=== PATIENT | female | born 2000 | race Caucasian/White ===

== ENCOUNTER 2020-05-03 14:48 | Inpatient (IN) ==
[2020-05-03 15:23] LABS: Appearance Urine Clear (Clear); Bilirubin Urine Negative (Negative); Blood Urine Negative (Negative); Color Urine Yellow; Glucose Urine UA Negative (Negative); Ketones Urine Negative (Negative); Leukocyte Esterase Urine Negative (Negative); Nitrite Urine Negative (Negative); Protein Urine Negative (Negative); Specific Gravity Urine 1.015 (1.000-1.030); Urobilinogen Urine Negative (Negative)
--- NOTE | 2020-05-03 15:23 | Emergency Department Note ---
History of Present Illness General Chief Complaint: Mental Health Evaluation Stated Complaint: SUICIDE THOUGHTS Time Seen by Provider: 05/03/20 15:01 Source: patient Mode of arrival: ambulatory Limitations: no limitations History of Present Illness Provider complaint: suicidal ideation This is a 20-year-old female who presents to the ED with a chief complaint of intrusive thoughts for the past month. She states that she was living with her dad a couple of years ago when he committed suicide by shooting himself. The patient states that she has a therapist at [place] and also a psychiatrist there as well. The therapist thought she should come in for evaluation as she has been having some intrusive thoughts about harming herself such as jumping off of a balcony. The patient denies any recent illness. She denies any trauma. She has not taken any actions to harm herself at this point. She does feel that she is suicidal at times and concerned about herself being at risk since her dad committed suicide as well. Home Medications Medication Instructions Recorded Confirmed Type fluoxetine 80 mg PO QAM 05/03/20 05/03/20 History hydralazine 10 mg PO TID PRN 05/03/20 05/03/20 History prazosin 5 mg PO HS 05/03/20 05/03/20 History Allergies Allergy/AdvReac Type Severity Reaction Status Date / Time Penicillins AdvReac Vomiting Verified 05/03/20 17:57 Past Med/Surg History Social History Smoking Status: Never smoker Feels Safe at Home: Yes Review of Systems A total of 10 systems reviewed and were otherwise negative Physical Exam Vital Signs Vital Signs - 24 hr 05/03/20 14:55 05/03/20 16:49 Temperature 36.8 C Temperature Source Temporal Artery Scan Pulse Rate 110 H Respiratory Rate 18 Respiratory Effort / Characteristics Non-Labored Spontaneous Respiratory Depth Normal Respiratory Pattern Regular Blood Pressure 128/76 Blood Pressure [Right Arm] 123/79 Blood Pressure Mean 93 Blood Pressure Mean [Right Arm] 93 Blood Pressure Position Sitting Pulse Oximetry 97 Oxygen Delivery Method Room Air Sepsis Recent Fever Within 48 Hours No Sepsis New/Unexplained Change in Mental Status N/A Sepsis Action Taken by Nursing No Action Required CONSTITUTIONAL/VITAL SIGNS: Reviewed / noted above. GENERAL: Non-toxic in appearance. INTEGUMENTARY: Warm, dry, and Soldier. HEAD: Normocephalic. EYES: without scleral icterus or trauma. ENT/OROPHARYNX: clear and moist. LYMPHADENOPATHY/NECK: Is supple without lymphadenopathy or meningismus. RESPIRATORY: Lungs clear and equal. CARDIOVASCULAR: Regular rate and rhythm. GI/ABDOMEN: Soft and nontender. No organomegaly or pulsatile mass. No rebound or guarding. Normal bowel sounds. EXTREMITIES: Warm and well perfused. BACK: No CVA tenderness. NEUROLOGICAL: Intact without focal deficits. PSYCHIATRIC: Depressed affect, tearful at times when referring to her dad.. MUSCULOSKELETAL: Normally developed with good muscle tone. TRIAGE NURSING DOCUMENTATION REVIEWED. Medical Decision Making Differential Diagnosis Differential includes toxic ingestions, self-mutilation, suicidal ideation, suicide attempt, depression. Medical Records Attestation: I reviewed the patient's medical records. Home Medications Current Medication List: was personally reviewed by me Laboratory Data Attestation: I reviewed the patient's lab results. Result diagrams: 05/03/20 15:42 05/03/20 15:42 Lab Results 05/03/20 05/03/20 05/03/20 Range/Units 15:07 15:07 15:07 WBC (4.8-10.8) K/uL RBC (4.2-5.4) M/uL Hgb (12.0-16.0) g/dL Hct (37-47) % MCV (80-100) fL MCH (25-34) pg MCHC (32-36) g/dL RDW Std Deviation (36.4-46.3) fL RDW Coeff of Keanu (11.5-14.5) % Plt Count (130-400) K/uL MPV (7.4-10.4) fL Immature Gran % (Auto) % Neut % (Auto) % Lymph % (Auto) % [place] % (Auto) % Eos % (Auto) % Baso % (Auto) % Neut # (Auto) (1.4-6.5) K/uL Lymph # (Auto) (1.2-3.4) K/uL [place] # (Auto) (0.11-0.59) K/uL Eos # (Auto) (0-0.5) K/uL Baso # (Auto) (0-0.2) K/uL Immature Gran # (Auto) (0.00-0.02) K/uL Sodium (136-145) mmol/L Potassium (3.5-5.1) mmol/L Chloride (98-107) mmol/L Carbon Dioxide (21-32) mmol/L Anion Gap (3-11) BUN (7-18) mg/dl Creatinine (0.6-1.2) mg/dl Est Cr Clr Drug Dosing ml/min Est GFR ( Amer) Est GFR (Non-Af Amer) BUN/Creatinine Ratio (10-20) Glucose (70-99) mg/dl Calcium (8.5-10.1) mg/dl Total Bilirubin (0.2-1) mg/dl AST (15-37) U/L ALT (12-78) U/L Alkaline Phosphatase (45-117) U/L Total Protein (6.4-8.2) gm/dl Albumin (3.4-5.0) gm/dl Globulin (2.5-4.0) gm/dl Albumin/Globulin Ratio (0.9-2) TSH (0.300-4.500) uIu/ml Urine Color Yellow Urine Appearance Clear (Clear) Urine pH 8.0 H (4.5-7.5) Ur Specific [place] 1.015 (1.000-1.030) Urine Protein Negative (Negative) Urine Glucose (UA) Negative (Negative) Urine Ketones Negative (Negative) Urine Blood Negative (Negative) Urine Nitrite Negative (Negative) Urine Bilirubin Negative (Negative) Urine Urobilinogen Negative (Negative) Ur Leukocyte Esterase Negative (Negative) POC Ur Test NEG (NEG) Salicylates (2.8-20) mg/dl Urine Opiates Screen Neg (Neg) Ur Methadone, Qual Neg (Neg) Acetaminophen (10-30) ug/ml Urine Barbiturates Neg (Neg) Ur Phencyclidine (PCP) Neg (Neg) U Amphetamin/Meth Scrn Neg (Neg) MDMA (Ecstasy) Screen Neg (Neg) U Benzodiazepines Scrn Neg (Neg) Ur Cocaine Metabolite Neg (Neg) U Marijuana (THC) Screen Neg (Neg) Ethyl Alcohol mg/dL (0-3) mg/dl COVID-19 Eval Order SARS-CoV-2, RNA, NAAT (NEGATIVE) 05/03/20 05/03/20 05/03/20 Range/Units 15:30 15:30 15:42 WBC 7.16 (4.8-10.8) K/uL RBC 4.44 (4.2-5.4) M/uL Hgb 13.7 (12.0-16.0) g/dL Hct 39.7 (37-47) % MCV 89.4 (80-100) fL MCH 30.9 (25-34) pg MCHC 34.5 (32-36) g/dL RDW Std Deviation 40.3 (36.4-46.3) fL RDW Coeff of Keanu 12.3 (11.5-14.5) % Plt Count 283 (130-400) K/uL MPV 8.7 (7.4-10.4) fL Immature Gran % (Auto) 0.0 % Neut % (Auto) 62.0 % Lymph % (Auto) 26.3 % [place] % (Auto) 10.3 % Eos % (Auto) 1.3 % Baso % (Auto) 0.1 % Neut # (Auto) 4.44 (1.4-6.5) K/uL Lymph # (Auto) 1.88 (1.2-3.4) K/uL [place] # (Auto) 0.74 H (0.11-0.59) K/uL Eos # (Auto) 0.09 (0-0.5) K/uL Baso # (Auto) 0.01 (0-0.2) K/uL Immature Gran # (Auto) 0.00 (0.00-0.02) K/uL Sodium (136-145) mmol/L Potassium (3.5-5.1) mmol/L Chloride (98-107) mmol/L Carbon Dioxide (21-32) mmol/L Anion Gap (3-11) BUN (7-18) mg/dl Creatinine (0.6-1.2) mg/dl Est Cr Clr Drug Dosing ml/min Est GFR ( Amer) Est GFR (Non-Af Amer) BUN/Creatinine Ratio (10-20) Glucose (70-99) mg/dl Calcium (8.5-10.1) mg/dl Total Bilirubin (0.2-1) mg/dl AST (15-37) U/L ALT (12-78) U/L Alkaline Phosphatase (45-117) U/L Total Protein (6.4-8.2) gm/dl Albumin (3.4-5.0) gm/dl Globulin (2.5-4.0) gm/dl Albumin/Globulin Ratio (0.9-2) TSH (0.300-4.500) uIu/ml Urine Color Urine Appearance (Clear) Urine pH (4.5-7.5) Ur Specific [place] (1.000-1.030) Urine Protein (Negative) Urine Glucose (UA) (Negative) Urine Ketones (Negative) Urine Blood (Negative) Urine Nitrite (Negative) Urine Bilirubin (Negative) Urine Urobilinogen (Negative) Ur Leukocyte Esterase (Negative) POC Ur Test (NEG) Salicylates (2.8-20) mg/dl Urine Opiates Screen (Neg) Ur Methadone, Qual (Neg) Acetaminophen (10-30) ug/ml Urine Barbiturates (Neg) Ur Phencyclidine (PCP) (Neg) U Amphetamin/Meth Scrn (Neg) MDMA (Ecstasy) Screen (Neg) U Benzodiazepines Scrn (Neg) Ur Cocaine Metabolite (Neg) U Marijuana (THC) Screen (Neg) Ethyl Alcohol mg/dL (0-3) mg/dl COVID-19 Eval [facility] SARS-[facility]-2, RNA, NAAT NEGATIVE (NEGATIVE) 05/03/20 05/03/20 05/03/20 Range/Units 15:42 15:42 15:42 WBC (4.8-10.8) K/uL RBC (4.2-5.4) M/uL Hgb (12.0-16.0) g/dL Hct (37-47) % MCV (80-100) fL MCH (25-34) pg MCHC (32-36) g/dL RDW Std Deviation (36.4-46.3) fL RDW Coeff of Keanu (11.5-14.5) % Plt Count (130-400) K/uL MPV (7.4-10.4) fL Immature Gran % (Auto) % Neut % (Auto) % Lymph % (Auto) % [place] % (Auto) % Eos % (Auto) % Baso % (Auto) % Neut # (Auto) (1.4-6.5) K/uL Lymph # (Auto) (1.2-3.4) K/uL [place] # (Auto) (0.11-0.59) K/uL Eos # (Auto) (0-0.5) K/uL Baso # (Auto) (0-0.2) K/uL Immature Gran # (Auto) (0.00-0.02) K/uL Sodium 138 (136-145) mmol/L Potassium 3.9 (3.5-5.1) mmol/L Chloride 107 (98-107) mmol/L Carbon Dioxide 27 (21-32) mmol/L Anion Gap 4.0 (3-11) BUN 15 (7-18) mg/dl Creatinine 0.82 (0.6-1.2) mg/dl Est Cr Clr Drug Dosing 89.0 ml/min Est GFR ( Amer) 117.7 Est GFR (Non-Af Amer) 101.6 BUN/Creatinine Ratio 18.1 (10-20) Glucose 89 (70-99) mg/dl Calcium 9.6 (8.5-10.1) mg/dl Total Bilirubin 0.2 (0.2-1) mg/dl AST 11 L (15-37) U/L ALT 20 (12-78) U/L Alkaline Phosphatase 38 L (45-117) U/L Total Protein 6.9 (6.4-8.2) gm/dl Albumin 3.7 (3.4-5.0) gm/dl Globulin 3.2 (2.5-4.0) gm/dl Albumin/Globulin Ratio 1.2 (0.9-2) TSH 4.140 (0.300-4.500) uIu/ml Urine Color Urine Appearance (Clear) Urine pH (4.5-7.5) Ur Specific [place] (1.000-1.030) Urine Protein (Negative) Urine Glucose (UA) (Negative) Urine Ketones (Negative) Urine Blood (Negative) Urine Nitrite (Negative) Urine Bilirubin (Negative) Urine Urobilinogen (Negative) Ur Leukocyte Esterase (Negative) POC Ur Test (NEG) Salicylates < 1.7 L (2.8-20) mg/dl Urine Opiates Screen (Neg) Ur Methadone, Qual (Neg) Acetaminophen < 2 L (10-30) ug/ml Urine Barbiturates (Neg) Ur Phencyclidine (PCP) (Neg) U Amphetamin/Meth Scrn (Neg) MDMA (Ecstasy) Screen (Neg) U Benzodiazepines Scrn (Neg) Ur Cocaine Metabolite (Neg) U Marijuana (THC) Screen (Neg) Ethyl Alcohol mg/dL < 3.0 (0-3) mg/dl COVID-19 Eval Order SARS-CoV-2, RNA, NAAT (NEGATIVE) MDM Narrative Patient presents for evaluation at the advice of her therapist from [place]. Suicidal thoughts and intrusive thoughts, according to the patient. Has not taken any furtherance of action towards these thoughts. Exam was unremarkable. Vital signs are stable. The patient is medically cleared for psychiatric evaluation and admission. test was negative. Tox screen was negative. Covid is negative. CBC and chemistry panel was unremarkable. The patient was accepted here at [facility] [address] for mental health evaluation. Impression & Plan Depression with suicidal ideation Discharge Plan Visit Data Chief Complaint: Mental Health Evaluation Stated Complaint: SUICIDE THOUGHTS ED Provider: Rashaun Long Discharge Problem: Depression with suicidal ideation Patient Disposition: Transfer Behavioral Health Fac Forms Stand Alone Forms: My [facility], Suicide Prevention Resources Prescriptions Prescriptions: No Action fluoxetine 40 mg Capsule 80 mg PO QAM RF: 0 hydralazine 10 mg Tablet 10 mg PO TID PRN (Reason: Anxiety) RF: 0 prazosin 5 mg Capsule 5 mg PO HS RF: 0 Referrals Referrals: LIZZ LAGUNAS [Other]
[2020-05-03 15:50] LABS: Amphetamines+Metham, Urine Neg (Neg); Barbiturates, Urine Neg (Neg); Benzodiazepine, Urine Neg (Neg); Cocaine, Urine Neg (Neg); MDMA (Ecstacy), Urine Neg (Neg); Methadone, Urine Neg (Neg); Opiate, Urine Neg (Neg); Phencyclidine, Urine Neg (Neg)
[2020-05-03 15:59] LABS: Basophils # (auto) 0.01 K/uL (0-0.2); Basophils % (auto) 0.1 %; Eosinophils # (auto) 0.09 K/uL (0-0.5); Eosinophils % (auto) 1.3 %; Hematocrit (blood only) 39.7 % (37-47); Hemoglobin 13.7 g/dL (12.0-16.0); Lymphocytes # (auto) 1.88 K/uL (1.2-3.4); Lymphocytes % (auto) 26.3 %; Mean Corpuscular Hemoglobin 30.9 pg (25-34); Mean Corpuscular Hgb Conc 34.5 g/dL (32-36); Mean Corpuscular Volume 89.4 fL (80-100); Mean Platelet Volume 8.7 fL (7.4-10.4); Monocytes # (auto) 0.74 K/uL (0.11-0.59); Monocytes % (auto) 10.3 %; Neutrophils # (auto) 4.44 K/uL (1.4-6.5); Platelet Count 283 K/uL (130-400); RDW Coefficient of Variation 12.3 % (11.5-14.5); RDW Standard Deviation 40.3 fL (36.4-46.3); Red Blood Count 4.44 M/uL (4.2-5.4); White Blood Count 7.16 K/uL (4.8-10.8)
[2020-05-03 16:14] LABS: Albumin Level 3.7 gm/dl (3.4-5.0); BUN Creatinine Ratio 18.1 (10-20); Calcium 9.6 mg/dl (8.5-10.1); Est GFR (African American) 117.7; Est GFR (Non-African American) 101.6; Potassium 3.9 mmol/L (3.5-5.1)
[2020-05-03 16:25] LABS: Albumin Globulin Ratio 1.2 (0.9-2); Bilirubin,Total 0.2 mg/dl (0.2-1); Globulin 3.2 gm/dl (2.5-4.0); Thyroid Stimulating Hormone 4.14 uIu/ml (0.300-4.500); Total Protein 6.9 gm/dl (6.4-8.2)
[2020-05-03 16:45] LABS: Acetaminophen < 2 ug/ml (10-30); Salicylate < 1.7 mg/dl (2.8-20)
[2020-05-03] MEDS ORDERED: ALUMINUM/MAGNESIUM SUSP 30 ML UDC PO PRN (20:12)
[2020-05-03] MEDS ORDERED: hydrOXYzine HCl 25 MG TAB PO PRN ×2 (20:12)
[2020-05-03] MEDS ORDERED: MAGNESIUM HYDROXIDE SUSP 30 ML UDC PO PRN (20:12)
[2020-05-03] MEDS ORDERED: ACETAMINOPHEN 325 MG TAB PO PRN (20:12)
[2020-05-03] MEDS ORDERED: BISMUTH SUBSALICYLATE LIQD 236 ML PO PRN (20:12)
[2020-05-03] MEDS ORDERED: SODIUM CHLORIDE 0.65% NA SOLN 45 ML (OCEAN) PRN (20:12)
[2020-05-03] MEDS ORDERED: PRAZOSIN HCL 1 MG CAP PO SCH (21:00)
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
[2020-05-04] MEDS ORDERED: busPIRone 5 MG TAB PO ONE (10:53)
[2020-05-04] MEDS: FLUoxetine HCL 20 MG CAP PO SCH (12:17)
--- NOTE | 2020-05-04 12:45 | Communication Note ---
Date of Service: May 04, 2020 Outpatient Psychiatric Records from [facility] Reviewed and Summarized: Diagnoses: - Major depressive disorder, recurrent, mild - Generalized anxiety disorder - Eating disorder, unspecified Medications: - Fluoxetine - 80mg qAM - Hydroxyzine - 10mg BID - Prazosin - 1mg qHS 07/2015 - Psychiatric Evaluation - Pt transferred care from Dr. Disla requesting treatment for anxiety and "mild depressive sx". Symptoms had reportedly been more stable with use of sertraline for 3 years. Pt denied significant depressive symptoms and anxiety was reportedly tolerable. Pt did reports "some OCD sx to include liking numbers to 'go by 5's' such as the TV volume number" as well as "making sure 'things are as they should be'." - Pt was continued on 75mg of sertraline; pt reported feeling as though she had adequately processed the loss of her brother 5 years earlier. 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 Reportedly "seeking a lot of reassurance." Stress was reported to be situational, no medication changes made. Patient taking 80mg of fluoxetine, and hydroxyzine as needed. 02/15/2020 - Medication Check - Pt processed stress of boyfriend testing positive for COVID-19 which delayed patient's move to [place] for legal internship. No medication changes. 03/29/2020 - Medication Check - Pt processed her trip to the ED after experiencing severe anxiety. Pt had nightmares two nights in a row about suicide - one was her father, another a ra ndom girl. Pt reported increased anxiety related to this. Intrusive thoughts about ways people kill themselves as she goes through her day. Pt denied true SI, but reported "just having intrusive thoughts that I would somehow just do it." Fear she would "involuntarily and impulsively kill herself." - Pt was initiated on prazosin 1 mg qHS for nightmares. Continued on fluoxetine 80mg qAM and hydroxyzine as needed. *See scanned in documentation for therapy records*
[2020-05-04] MEDS: PRAZOSIN HCL 1 MG CAP PO SCH (22:00)
[2020-05-04] MEDS: busPIRone 5 MG TAB PO SCH (22:15)
--- NOTE | 2020-05-05 07:58 | Psychiatric Progress Note ---
Date of Service May 05, 2020 Impression / Recommendations Impression 20-year-old female who was admitted voluntarily for inpatient psychiatric treatment on 05/03/20 after presenting to the ED with reports of worsening depression and anxiety as well as suicidal ideation with numerous plans (jump from balcony, shoot self, cut wrist, or crash car). Pt was reportedly unable to contract for safety with these thoughts, specifically stating she was worried she was more likely to act because her father had committed suicide in 2019. Pt does have outpatient psychiatric providers through [facility], we will request clinical information and confirm follow-up appointments. Pt has been diagnosed with depression, anxiety, and states there have been recent thoughts of possible PTSD diagnosis. Pt agreed at this time to continuing her doses of fluoxetine and prazosin. We discussed options of either augmenting her current regimen or cross-tapering to an alternative antidepressant medication. Pt did agree to a trial of buspirone to target anxiety. Could also consider a trial of a low-dose antipsychotic medication to target anxiety/intrusive thoughts. Pt had a positive meeting with her boyfriend and mother. Although patient is denying desire to act on these thoughts of suicide, she does admit that she is not safe to be outside of the hospital due to fear she would act. Anxiety is elevated and she would be unlikely to be able to tolerate the stress of community re- entry in her current state. (1) Suicidal ideation: 05/04 - Admitted to a locked inpatient behavioral health unit, on q15 minute safety checks - Encourage medication adjustments as indicated - Encourage participation in group and recreational therapies - Gather collateral information from outpatient providers - Suggest family meeting to involve outpatient supports in safety planning - Arrange appropriate aftercare 05/05 - Pt admits to ongoing intrusive thoughts of SI, they remain ego dystonic, but are still concerning for the patient - She is unable at this time to contract for safety outside of the hospital setting (2) Generalized anxiety disorder: 05/04 - Diagnosis of generalized anxiety disorder, with recent panic attacks. Cannot entirely rule out PTSD due to frequent intrusive thoughts of suicide presumed to be related to her father's suicide and trauma with the deaths of her brother and father. Pt does admit to nightmares and has been prescribed prazosin 1mg qHS which we will continue. - Continue fluoxetine 80mg qAM at this time, will trial augmentation with buspirone initially while collateral is being gathered from the patient's outpatient psychiatric prescriber. Other considerations include trial of a low- dose antipsychotic medication or possible cross-taper to an alternative antidepressant medication. - Pt questions a diagnosis of OCD, and admits to intrusive thoughts related to her father's suicide but does not report compulsions or other significant criteria for this diagnosis - continue to monitor - Encourage attendance of group programming, assist with development of healthy and effective coping strategies - Encourage family meeting to discuss safety and discharge planning - Coordinate outpatient appointments with therapist and psychiatric prescriber - Pt will be encouraged to complete a written safety plan prior to discharge 3 - Pt admits to ongoing intrusive thoughts of suicide, especially prevalent last evening. She admits to feeling safe here on the unit, but does not yet feel that she is able to manage these thoughts any differently and would not be safe doing so outside of the hospital setting at this time. - Pt reports she is benefitting from groups - continue to encourage attendance and participation in 1:1 therapy - Pt had a positive meeting with her mother and boyfriend today, feels they are supportive - Goal of treatment at this time is to focus on equipping patient with techniques to maintain appropriate mood and anxiety and minimize intrusive SI, especially during the time in which she will be away from her supports (3) Depression: 05/04 - Medication adjustments as above - patient admits that her primary concern at this time is anxiety and intrusive thoughts - Monitor mood for worsening depression 05/05 - Reports improvement in mood - even suggesting feeling "jittery" and "fast- paced". We reviewed criteria for bipolar disorder, and patient was encouraged to monitor for symptoms of dieter. It is still felt that patient does not meet criteria for a bipolar diagnosis at this time, but patient verbalized understanding of need to monitor for these mood symptoms, especially given reported family history of bipolar disorder with her mother. 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 The patient has a history of depression, and was admitted on 05/03/20 20:12 on a 201 voluntary commitment for worsening anxiety and intrusive suicidal thoughts with images of numerous plans. Chief Complaint "Really good." Review of Systems Notes Constitutional: reports occasional dizziness Cardiovascular: denied Respiratory: denied Gastrointestinal: denied Neurological: denied Psychiatric: denies symptoms other than stated above Total of at least 10 systems reviewed, pertinent positives as above and in HPI. Sleep Information Total Hours of Sleep: 6.5 Sleep Comments: pt on q-15 minute checks Meal Information Percent Meal Consumed - Breakfast: 100 Percent Meal Consumed - Dinner: 85 Subjective Subjective Patient was seen & assessed and interval progress reviewed with nursing and social work. Staff report the patient has been interactive with peers and has been participating in group programming. Pt rated her mood a "4.5"/10 last evening and "anxious, stressed, and worried." Pt had a support meeting with her boyfriend and mother this morning. Pt was seen today following the meeting to assess progress since admission. Pt states that currently she is feeling "Really good". She is enjoying connecting with peers and states her meeting this morning went really well. Pt states the goals of the meeting were "how to make myself safe, getting me more help when I'm away from home." Pt does admit that she had a more difficult time last evening due to feeling "triggered" during a conversation. Pt shares that during a conversation were staff inquired about patient's ability to contract for safety here on the unit, she began having intrusive thoughts about her potential to harm herself in the hospital. Pt states "they asked if I was thinking about doing anything to hurt myself here, or had any plans, and I was so confused - I came here because it's safe. Then I started getting worried, like, 'could I hurt myself here?'." This provider offered reassurance and an explanation on why staff needs to address this questions, but that we are happy these are not thoughts she had been experiencing. Pt states that this unfortunately led to a more difficult evening, with frequent intrusive thoughts. Pt states her mood was also lower. Pt was happy to have been able to process with numerous staff and did find that helpful. Pt admits she is still worried about her potential for suicide, though does make it clear she does not actually want to act on the thoughts. Pt shared that her mood is improved today, but that she is actually feeling "fast-paced" and "jittery", and speech is perceived to be faster than normal per the patient. We did discuss the criteria for bipolar disorder, given that patient states her mother has been diagnosed with this (though describes it as "one second she's fine, then the next she's really irritable). Pt continues to deny symptoms that would clearly indicate bipolar disorder, but was educated on the importance of monitoring for these changes in mood/behavior and sleep patterns. Pt denied other needs or concerns at this time. Primary goal verbalized is to "learn some tips or tricks that will help me to either distract myself from these thoughts, or either face them head on but then move on." Physical Exam Psychiatric Orientation: alert, oriented x 3 and cooperative (and pleasant) Apperance: appropriately dressed, appropriately groomed and appeared stated age Eye Contact: good eye contact Motor Behavior: steady gait and station and no abnormal motor movements (some fidgeting behaviors) Speech: + abnormal rate/rhythm/volume of speech (hyperverbal, quick pace) states this is generally normal, though may be a bit faster today Affect: euthymic affect and + anxious affect (restless, fidgeting) Mood: + anxious mood; no depressed mood Thought Process: goal directed thought process, clear/coherent thought process and thought association intact Thought Content: reality based without delusions; no hopelessness and no worthlessness Suicidal Thoughts: denies suicidal intent; + reports suicidal thoughts intrusive SI, thoughts remain ego dystonic - but continue to be very distressing Homicidal Thoughts: denies homicidal thoughts Hallucinations: no auditory hallucinations and no visual hallucinations Cognition: recent memory grossly intact, attention grossly intact and language grossly intact Estimated Intelligence: consistent with education level Insight: + fair insight Judgement: + fair judgement Vital Signs (Past 24 Hours) Last Vital Signs Temp 36.7 C 05/05/20 07:00 Pulse 96 H 05/05/20 07:02 Resp 16 05/05/20 07:00 BP 106/61 05/05/20 07:02 Pulse Ox 100 05/03/20 19:58 Results & Data ([facility]) Current Inpatient Medications Current Inpatient Medications: Current Inpatient Medications Acetaminophen (Acetaminophen 325 Mg Tab) 650 mg PO Q4H PRN PRN Reason: Headache or Minor Fever Stop: 06/02/20 20:11 Al Hydrox/Mg Hydrox/Simethicone (Aluminum/Magnesium Susp 30 Ml Udc) 30 ml PO Q4H PRN PRN Reason: GI Upset Stop: 06/02/20 20:11 Bismuth Subsalicylate (Bismuth Subsalicylate Liqd 236 Ml) 15 ml PO PRN PRN PRN Reason: Loose Stool Stop: 06/02/20 20:11 Buspirone HCl (Buspirone 5 Mg Tab) 10 mg PO BID GRACE Stop: 06/03/20 20:59 Last Admin: 05/04/20 22:15 Dose: 10 mg Documented by: Fluoxetine HCl (Fluoxetine Hcl 20 Mg Cap) 80 mg PO QAM GRACE Stop: 06/03/20 10:59 Last Admin: 05/04/20 12:17 Dose: 80 mg Documented by: Hydroxyzine HCl (Hydroxyzine Hcl 25 Mg Tab) 50 mg PO HSZ PRN PRN Reason: Insomnia Stop: 06/02/20 20:11 Hydroxyzine HCl (Hydroxyzine Hcl 25 Mg Tab) 25 mg PO Q4H PRN PRN Reason: Anxiety Stop: 06/02/20 20:11 Magnesium Hydroxide (Magnesium Hydroxide Susp 30 Ml Udc) 30 ml PO DAILY PRN PRN Reason: Constipation Stop: 06/02/20 20:11 Prazosin HCl (Prazosin Hcl 1 Mg Cap) 1 mg PO QPM GRACE Stop: 06/03/20 20:59 Last Admin: 05/04/20 22:00 Dose: 1 mg Documented by: Sodium Chloride (Sodium Chloride 0.65% Na Soln 45 Ml (Amelia)) 1 - 2 sprays NA PRN PRN PRN Reason: Nasal Dryness/Congestion Stop: 06/02/20 20:11 Mental Health & Subst Abuse Tx Psychiatrist Name of Psychiatrist: Shannan Aleman Psychiatrist's Date of Appointment with Psychiatrist: 05/09/20 Time of Appointment with Psychiatrist: 2:00 p.m. Psychiatric Appointment Comment: [id number] [facility] Therapist Name of Therapist: Shannan Sierra Therapist's Date of Therapist Appointment: 05/09/20 Time of Therapist Appointment: 4:00 p.m. Therapy Appointment Comment: [id number] [facility] Post Discharge Appointments Primary Care Physician Name Of Family Doctor: [facility] Time of Appointment with PCP: Follow up as needed Provider Appointment Comment: [address] [place] [id number] Contact Information Discharge Discharge [address]: [address] [place] [address] [place] [id number] (1) Depression Active/Remission status: currently active Depression Type: major depressive disorder Major depression episode severity: moderate Major depression recurrence: recurrent Qualified Code(s): F33.1 - Major depressive disorder, recurrent, moderate (2) Eating disorder Eating disorder type: unspecified eating disorder Qualified Code(s): F50.9 - Eating disorder, unspecified
[2020-05-05] MEDS: busPIRone 5 MG TAB PO SCH ×2 (09:01→21:29)
[2020-05-05] MEDS: FLUoxetine HCL 20 MG CAP PO SCH (09:01)
[2020-05-05] MEDS: PRAZOSIN HCL 1 MG CAP PO SCH (21:29)
[2020-05-06] MEDS ORDERED: ONDANSETRON 4 MG OD TAB PO STA (01:04)
[2020-05-06] MEDS ORDERED: ONDANSETRON 4 MG OD TAB ONE (01:12)
--- NOTE | 2020-05-06 07:50 | Psychiatric Progress Note ---
Date of Service May 06, 2020 Impression / Recommendations Impression 20-year-old female who was admitted voluntarily for inpatient psychiatric treatment on 05/03/20 after presenting to the ED with reports of worsening depression and anxiety as well as suicidal ideation with numerous plans (jump from balcony, shoot self, cut wrist, or crash car). Pt was reportedly unable to contract for safety with these thoughts, specifically stating she was worried she was more likely to act because her father had committed suicide in 2019. Pt does have outpatient psychiatric providers through [facility], we will request clinical information and confirm follow-up appointments. Pt has been diagnosed with depression, anxiety, and states there have been recent thoughts of possible PTSD diagnosis. Pt agreed at this time to continuing her doses of fluoxetine and prazosin. We discussed options of either augmenting her current regimen or cross-tapering to an alternative antidepressant medication. Pt did agree to a trial of buspirone to target anxiety. Could also consider a trial of a low-dose antipsychotic medication to target anxiety/intrusive thoughts. Pt had a positive meeting with her boyfriend and mother. Although patient is denying desire to act on these thoughts of suicide, she does admit that she is not safe to be outside of the hospital due to fear she would act. Anxiety is elevated and she would be unlikely to be able to tolerate the stress of community re- entry in her current state. (1) Suicidal ideation: 05/04 - Admitted to a locked inpatient behavioral health unit, on q15 minute safety checks - Encourage medication adjustments as indicated - Encourage participation in group and recreational therapies - Gather collateral information from outpatient providers - Suggest family meeting to involve outpatient supports in safety planning - Arrange appropriate aftercare 05/05 - 05/06 - Pt admits to ongoing intrusive thoughts of SI, they remain ego dystonic, but are still concerning for the patient - She is unable at this time to contract for safety outside of the hospital setting (2) Generalized anxiety disorder: 05/04 - Diagnosis of generalized anxiety disorder, with recent panic attacks. Cannot entirely rule out PTSD due to frequent intrusive thoughts of suicide presumed to be related to her father's suicide and trauma with the deaths of her brother and father. Pt does admit to nightmares and has been prescribed prazosin 1mg qHS which we will continue. - Continue fluoxetine 80mg qAM at this time, will trial augmentation with buspirone initially while collateral is being gathered from the patient's outpatient psychiatric prescriber. Other considerations include trial of a low- dose antipsychotic medication or possible cross-taper to an alternative antidepressant medication. - Pt questions a diagnosis of OCD, and admits to intrusive thoughts related to her father's suicide but does not report compulsions or other significant criteria for this diagnosis - continue to monitor - Encourage attendance of group programming, assist with development of healthy and effective coping strategies - Encourage family meeting to discuss safety and discharge planning - Coordinate outpatient appointments with therapist and psychiatric prescriber - Pt will be encouraged to complete a written safety plan prior to discharge 05/05 - Pt admits to ongoing intrusive thoughts of suicide, especially prevalent last evening. She admits to feeling safe here on the unit, but does not yet feel that she is able to manage these thoughts any differently and would not be safe doing so outside of the hospital setting at this time. - Pt reports she is benefitting from groups - continue to encourage attendance and participation in 1:1 therapy - Pt had a positive meeting with her mother and boyfriend today, feels they are supportive - Goal of treatment at this time is to focus on equipping patient with techniques to maintain appropriate mood and anxiety and minimize intrusive SI, especially during the time in which she will be away from her supports 05/06 - Pt reports anxiety and intrusive thoughts about suicide are most significant in the evenings. She agreed to adjusting dosing of buspirone to have bedtime dose given earlier in the evening. Pt also reminded of prn hydroxyzine for anxiety/insomnia - Thoughts of suicide continue to be ego dystonic - patient is working on coping skills and distraction techniques. - Has outpatient psychiatric providers, but is requesting support groups or grief counseling options in [place] (3) Depression: 05/04 - Medication adjustments as above - patient admits that her primary concern at this time is anxiety and intrusive thoughts - Monitor mood for worsening depression 05/05 - Reports improvement in mood - even suggesting feeling "jittery" and "fast- paced". We reviewed criteria for bipolar disorder, and patient was encouraged to monitor for symptoms of dieter. It is still felt that patient does not meet criteria for a bipolar diagnosis at this time, but patient verbalized understanding of need to monitor for these mood symptoms, especially given reported family history of bipolar disorder with her mother. 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 The patient has a history of depression, and was admitted on 05/03/20 20:12 on a 201 voluntary commitment for worsening anxiety and intrusive suicidal thoughts with images of numerous plans. Chief Complaint "Um, I had nausea last night, so I'm a little tired." Review of Systems Notes Constitutional: reports fatigue Cardiovascular: denied Respiratory: denied Gastrointestinal: reports possible symptoms of acid reflux, nausea last evening Neurological: denied Psychiatric: denies symptoms other than stated above Total of at least 10 systems reviewed, pertinent positives as above and in HPI. Sleep Information Total Hours of Sleep: 5.5 Sleep Comments: Up once due to nausea Meal Information Percent Meal Consumed - Breakfast: 90 Percent Meal Consumed - Lunch: 100 Percent Meal Consumed - Dinner: 85 Subjective Subjective Patient was seen & assessed and interval progress reviewed with nursing and social work. Staff report the patient has been bright and cheerful. She does admit to ongoing intrusive ego dystonic thoughts of suicide. Pt rated her mood a 7/10 and "anxious" last evening. Pt was seen today to assess progress since admission. She shares about her nausea last evening, and admits this is ongoing. Pt does feel it may be related to acid reflux, prn medication options were reviewed. Pt does admit to intrusive thoughts of suicide, and states they are more severe in the evenings before bed. Pt has been trying coping skills - feeling she has developed some that are helpful, but not so much so that she feels confident about discharge. Pt agreed to earlier dosing of buspirone and was reminded of hydroxyzine for sleep. We also reviewed behavioral strategies to improve sleep and reduce anxiety before bed. Pt admits the thoughts continue to be ego dystonic. She denied other needs or concerns at this time. Physical Exam Psychiatric Orientation: alert, oriented x 3 and cooperative Apperance: appropriately dressed, appropriately groomed and appeared stated age Eye Contact: good eye contact Motor Behavior: steady gait and station and no abnormal motor movements Speech: normal rate/rhythm/volume of speech Affect: euthymic affect; + mood not congruent with affect Mood: + depressed mood and + anxious mood Thought Process: goal directed thought process and clear/coherent thought process Thought Content: reality based without delusions; no hopelessness and no worthlessness Suicidal Thoughts: denies suicidal thoughts and denies suicidal intent but ongoing ego dystonic intrusive thoughts of suicide Homicidal Thoughts: denies homicidal thoughts Hallucinations: no auditory hallucinations and no visual hallucinations Cognition: recent memory grossly intact, attention grossly intact and language grossly intact Estimated Intelligence: consistent with education level Insight: + fair insight Judgement: + fair judgement Vital Signs (Past 24 Hours) Last Vital Signs Temp 36.6 C 05/06/20 06:39 Pulse 85 05/06/20 06:40 Resp 16 05/06/20 06:39 BP 114/81 05/06/20 06:40 Pulse Ox 100 05/03/20 19:58 Results & Data ([facility]) Current Inpatient Medications Current Inpatient Medications: Current Inpatient Medications Acetaminophen (Acetaminophen 325 Mg Tab) 650 mg PO Q4H PRN PRN Reason: Headache or Minor Fever Stop: 06/02/20 20:11 Al Hydrox/Mg Hydrox/Simethicone (Aluminum/Magnesium Susp 30 Ml Udc) 30 ml PO Q4H PRN PRN Reason: GI Upset Stop: 06/02/20 20:11 Bismuth Subsalicylate (Bismuth Subsalicylate Liqd 236 Ml) 15 ml PO PRN PRN PRN Reason: Loose Stool Stop: 06/02/20 20:11 Buspirone HCl (Buspirone 5 Mg Tab) 10 mg PO BID GRACE Stop: 06/03/20 20:59 Last Admin: 05/05/20 21:29 Dose: 10 mg Documented by: Fluoxetine HCl (Fluoxetine Hcl 20 Mg Cap) 80 mg PO QAM GRACE Stop: 06/03/20 10:59 Last Admin: 05/05/20 09:01 Dose: 80 mg Documented by: Hydroxyzine HCl (Hydroxyzine Hcl 25 Mg Tab) 50 mg PO HSZ PRN PRN Reason: Insomnia Stop: 06/02/20 20:11 Hydroxyzine HCl (Hydroxyzine Hcl 25 Mg Tab) 25 mg PO Q4H PRN PRN Reason: Anxiety Stop: 06/02/20 20:11 Magnesium Hydroxide (Magnesium Hydroxide Susp 30 Ml Udc) 30 ml PO DAILY PRN PRN Reason: Constipation Stop: 06/02/20 20:11 Prazosin HCl (Prazosin Hcl 1 Mg Cap) 1 mg PO QPM GRACE Stop: 06/03/20 20:59 Last Admin: 05/05/20 21:29 Dose: 1 mg Documented by: Sodium Chloride (Sodium Chloride 0.65% Na Soln 45 Ml ([place])) 1 - 2 sprays NA PRN PRN PRN Reason: Nasal Dryness/Congestion Stop: 06/02/20 20:11 Mental Health & Subst Abuse Tx Psychiatrist Name of Psychiatrist: Shannan Aleman Psychiatrist's Date of Appointment with Psychiatrist: 05/09/20 Time of Appointment with Psychiatrist: 2:00 p.m. Psychiatric Appointment Comment: [id number] [facility] Therapist Name of Therapist: Shannan Sierra Therapist's Date of Therapist Appointment: 05/09/20 Time of Therapist Appointment: 4:00 p.m. Therapy Appointment Comment: [facility] Post Discharge Appointments Primary Care Physician Name Of Family Doctor: Awa Sanon Primary [facility] Time of Appointment with PCP: Follow up as needed Provider Appointment Comment: [place] [id number] Other #1: Name of Aftercare Appointment: Potential [place] options: [facility] Phone Number of Aftercare Appointment: [phone] ext 115 #2: Name of Aftercare Appointment: Potential [place] options: [facility] Phone Number of Aftercare Appointment: [phone] Contact Information Discharge Discharge Address: [address] [place] [address], [place] [address] (1) Depression Active/Remission status: currently active Depression Type: major depressive disorder Major depression episode severity: moderate Major depression recurrence: recurrent Qualified Code(s): F33.1 - Major depressive disorder, recurrent, moderate (2) Eating disorder Eating disorder type: unspecified eating disorder Qualified Code(s): F50.9 - Eating disorder, unspecified
[2020-05-06] MEDS: busPIRone 5 MG TAB PO SCH ×2 (08:57→17:47)
[2020-05-06] MEDS: FLUoxetine HCL 20 MG CAP PO SCH (08:58)
[2020-05-06] MEDS: PRAZOSIN HCL 1 MG CAP PO SCH (22:05)
[2020-05-07] MEDS: busPIRone 5 MG TAB PO SCH ×2 (08:51→18:22)
[2020-05-07] MEDS: FLUoxetine HCL 20 MG CAP PO SCH (08:51)
--- NOTE | 2020-05-07 08:57 | Psychiatric Progress Note ---
Date of Service May 07, 2020 Impression / Recommendations Impression 20-year-old female who was admitted voluntarily for inpatient psychiatric treatment on 05/03/20 after presenting to the ED with reports of worsening depression and anxiety as well as suicidal ideation with numerous plans (jump from balcony, shoot self, cut wrist, or crash car). Pt was reportedly unable to contract for safety with these thoughts, specifically stating she was worried she was more likely to act because her father had committed suicide in 2019. Pt does have outpatient psychiatric providers through [facility], we will request clinical information and confirm follow-up appointments. Pt has been diagnosed with depression, anxiety, and states there have been recent thoughts of possible PTSD diagnosis. Pt agreed at this time to continuing her doses of fluoxetine and prazosin. We discussed options of either augmenting her current regimen or cross-tapering to an alternative antidepressant medication. Pt did agree to a trial of buspirone to target anxiety. Could also consider a trial of a low-dose antipsychotic medication to target anxiety/intrusive thoughts. Pt had a positive meeting with her boyfriend and mother. Although patient is denying desire to act on these thoughts of suicide, she does admit that she is not safe to be outside of the hospital due to fear she would act. Anxiety is elevated and she would be unlikely to be able to tolerate the stress of community re- entry in her current state. (1) Suicidal ideation: 05/04 - Admitted to a locked inpatient behavioral health unit, on q15 minute safety checks - Encourage medication adjustments as indicated - Encourage participation in group and recreational therapies - Gather collateral information from outpatient providers - Suggest family meeting to involve outpatient supports in safety planning - Arrange appropriate aftercare 05/05 - 05/07 - Pt admits to ongoing intrusive thoughts of SI, they remain ego dystonic, but are still concerning for the patient - She is unable at this time to contract for safety outside of the hospital setting (2) Generalized anxiety disorder: 05/04 - Diagnosis of generalized anxiety disorder, with recent panic attacks. Cannot entirely rule out PTSD due to frequent intrusive thoughts of suicide presumed to be related to her father's suicide and trauma with the deaths of her brother and father. Pt does admit to nightmares and has been prescribed prazosin 1mg qHS which we will continue. - Continue fluoxetine 80mg qAM at this time, will trial augmentation with buspirone initially while collateral is being gathered from the patient's outpatient psychiatric prescriber. Other considerations include trial of a low- dose antipsychotic medication or possible cross-taper to an alternative antidepressant medication. - Pt questions a diagnosis of OCD, and admits to intrusive thoughts related to her father's suicide but does not report compulsions or other significant criteria for this diagnosis - continue to monitor - Encourage attendance of group programming, assist with development of healthy and effective coping strategies - Encourage family meeting to discuss safety and discharge planning - Coordinate outpatient appointments with therapist and psychiatric prescriber - Pt will be encouraged to complete a written safety plan prior to discharge 05/05 - Pt admits to ongoing intrusive thoughts of suicide, especially prevalent last evening. She admits to feeling safe here on the unit, but does not yet feel that she is able to manage these thoughts any differently and would not be safe doing so outside of the hospital setting at this time. - Pt reports she is benefitting from groups - continue to encourage attendance and participation in 1:1 therapy - Pt had a positive meeting with her mother and boyfriend today, feels they are supportive - Goal of treatment at this time is to focus on equipping patient with techniques to maintain appropriate mood and anxiety and minimize intrusive SI, especially during the time in which she will be away from her supports 05/06 - Pt reports anxiety and intrusive thoughts about suicide are most significant in the evenings. She agreed to adjusting dosing of buspirone to have bedtime dose given earlier in the evening. Pt also reminded of prn hydroxyzine for anxiety/insomnia - Thoughts of suicide continue to be ego dystonic - patient is working on coping skills and distraction techniques. - Has outpatient psychiatric providers, but is requesting support groups or grief counseling options in [place] 05/07 - Continue as above - patient admits anxiety was somewhat reduced last evening (3) Depression: 05/04 - Medication adjustments as above - patient admits that her primary concern at this time is anxiety and intrusive thoughts - Monitor mood for worsening depression 05/05 - Reports improvement in mood - even suggesting feeling "jittery" and "fast- paced". We reviewed criteria for bipolar disorder, and patient was encouraged to monitor for symptoms of dieter. It is still felt that patient does not meet criteria for a bipolar diagnosis at this time, but patient verbalized understa nding of need to monitor for these mood symptoms, especially given reported family history of bipolar disorder with her mother. 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 The patient has a history of depression, and was admitted on 05/03/20 20:12 on a 201 voluntary commitment for worsening anxiety and intrusive suicidal thoughts with images of numerous plans. Chief Complaint "Good, I was jeancarlos anxious last night." Review of Systems Notes Constitutional: denied Cardiovascular: denied Respiratory: denied Gastrointestinal: denied Neurological: denied Psychiatric: denies symptoms other than stated above Total of at least 10 systems reviewed, pertinent positives as above and in HPI. Sleep Information Total Hours of Sleep: 5 Sleep Comments: pt on q-15 minute checks Meal Information Percent Meal Consumed - Breakfast: 75 Percent Meal Consumed - Lunch: 90 Percent Meal Consumed - Dinner: 90 Subjective Subjective Patient was seen & assessed and interval progress reviewed with treatment team. Staff report the patient has been bright and interactive in the milieu, though somewhat incongruent with reports of ongoing intrusive thoughts of suicide and elevated anxiety. Pt rated her mood a 6/10 and "anxious" last evening. Pt did report feeling as though she could not yet contract for safety outside of the hospital setting. Pt was seen today to assess progress since admission. Pt states that she is "good, I was jeancarlos anxious last night." Pt states that she did have some intrusive negative thoughts, but did not feel that they were as severe as they had been earlier in her stay. She does admit that she found it a bit easier to fall asleep last night. Pt does admit to having what she describes to be a "nightmare" last evening. Subject was not related to suicide, but rather her boyfriend being with another woman. Pt states she was "stressed", but is aware it was a dream and is trying not to perseverate on this. Pt continues to feel her thoughts of suicide are ego dystonic. She is hoping to focus on some grounding techniques today and is continuing to develop coping skills to help with her anxiety and intrusive thoughts. Pt denied other needs or concerns at this time. Physical Exam Psychiatric Orientation: alert, oriented x 3 and cooperative Apperance: appropriately dressed, appropriately groomed and appeared stated age Eye Contact: good eye contact Motor Behavior: steady gait and station and no abnormal motor movements Speech: normal rate/rhythm/volume of speech Affect: euthymic affect and + anxious affect Mood: + anxious mood; no depressed mood Thought Process: goal directed thought process and clear/coherent thought process Thought Content: reality based without delusions; no hopelessness and no worthlessness Suicidal Thoughts: denies suicidal thoughts and denies suicidal intent but continues to have ego dystonic thoughts related to suicide Homicidal Thoughts: denies homicidal thoughts Hallucinations: no auditory hallucinations and no visual hallucinations Cognition: attention grossly intact and language grossly intact Estimated Intelligence: consistent with education level Insight: + fair insight Judgement: + fair judgement Vital Signs (Past 24 Hours) Last Vital Signs Temp 36.4 C L 05/07/20 06:41 Pulse 97 H 05/07/20 06:41 Resp 16 05/07/20 06:41 BP 108/68 05/07/20 06:41 Pulse Ox 100 05/03/20 19:58 Results & Data ([facility]) Current Inpatient Medications Current Inpatient Medications: Current Inpatient Medications Acetaminophen (Acetaminophen 325 Mg Tab) 650 mg PO Q4H PRN PRN Reason: Headache or Minor Fever Stop: 06/02/20 20:11 Al Hydrox/Mg Hydrox/Simethicone (Aluminum/Magnesium Susp 30 Ml Udc) 30 ml PO Q4H PRN PRN Reason: GI Upset Stop: 06/02/20 20:11 Bismuth Subsalicylate (Bismuth Subsalicylate Liqd 236 Ml) 15 ml PO PRN PRN PRN Reason: Loose Stool Stop: 06/02/20 20:11 Buspirone HCl (Buspirone 5 Mg Tab) 10 mg PO BID@0900,1800 GRACE Stop: 06/05/20 17:59 Last Admin: 05/07/20 08:51 Dose: 10 mg Documented by: Fluoxetine HCl (Fluoxetine Hcl 20 Mg Cap) 80 mg PO QAM GRACE Stop: 06/03/20 10:59 Last Admin: 05/07/20 08:51 Dose: 80 mg Documented by: Hydroxyzine HCl (Hydroxyzine Hcl 25 Mg Tab) 50 mg PO HSZ PRN PRN Reason: Insomnia Stop: 06/02/20 20:11 Hydroxyzine HCl (Hydroxyzine Hcl 25 Mg Tab) 25 mg PO Q4H PRN PRN Reason: Anxiety Stop: 06/02/20 20:11 Magnesium Hydroxide (Magnesium Hydroxide Susp 30 Ml Udc) 30 ml PO DAILY PRN PRN Reason: Constipation Stop: 06/02/20 20:11 Prazosin HCl (Prazosin Hcl 1 Mg Cap) 1 mg PO QPM GRACE Stop: 06/03/20 20:59 Last Admin: 05/06/20 22:05 Dose: 1 mg Documented by: Sodium Chloride (Sodium Chloride 0.65% Na Soln 45 Ml ([place])) 1 - 2 sprays NA PRN PRN PRN Reason: Nasal Dryness/Congestion Stop: 06/02/20 20:11 Mental Health & Subst Abuse Tx Psychiatrist Name of Psychiatrist: Shannan Aleman Psychiatrist's Date of Appointment with Psychiatrist: 05/09/20 Time of Appointment with Psychiatrist: 2:00 p.m. Psychiatric Appointment Comment: [facility] Therapist Name of Therapist: Shannan Sierra Therapist's Date of Therapist Appointment: 05/09/20 Time of Therapist Appointment: 4:00 p.m. Therapy Appointment Comment: [facility] Post Discharge Appointments Primary Care Physician Name Of Family Doctor: Awa Sanon Primary [facility] Time of Appointment with PCP: Follow up as needed Provider Appointment Comment: [address] [place] [id number] Other #1: Name of Aftercare Appointment: Potential [place] options: [facility] Phone Number of Aftercare Appointment: [phone] ext 115 #2: Name of Aftercare Appointment: Potential [place] options: [facility] Phone Number of Aftercare Appointment: [phone] Contact Information Discharge Discharge Address: [address] [place] [address], [place] [address] (1) Depression Active/Remission status: currently active Depression Type: major depressive disorder Major depression episode severity: moderate Major depression recurrence: recurrent Qualified Code(s): F33.1 - Major depressive disorder, recurrent, moderate (2) Eating disorder Eating disorder type: unspecified eating disorder Qualified Code(s): F50.9 - Eating disorder, unspecified
[2020-05-07] MEDS: PRAZOSIN HCL 1 MG CAP PO SCH (21:16)
[2020-05-08] MEDS: busPIRone 5 MG TAB PO SCH ×2 (09:00→17:33)
[2020-05-08] MEDS: FLUoxetine HCL 20 MG CAP PO SCH (09:01)
--- NOTE | 2020-05-08 11:16 | Psychiatric Progress Note ---
Date of Service May 08, 2020 Impression / Recommendations Impression 20-year-old female admitted voluntarily for inpatient psychiatric treatment on 05/03/20 after presenting to the ED with reports of worsening depression and anxiety as well as suicidal ideation with numerous plans (jump from balcony, shoot self, cut wrist, or crash car). Multiple medication adjustments ongoing to target intrusive thoughts, anxiety and SI. Inpatient treatment remains medically necessary due to the severity of symptoms and risk for suicide if discharged. (1) Suicidal ideation: 05/04 - Admitted to a locked inpatient behavioral health unit, on q15 minute safety checks - Encourage medication adjustments as indicated - Encourage participation in group and recreational therapies - Gather collateral information from outpatient providers - Suggest family meeting to involve outpatient supports in safety planning - Arrange appropriate aftercare 05/05 - 05/07 - Pt admits to ongoing intrusive thoughts of SI, they remain ego dystonic, but are still concerning for the patient - She is unable at this time to contract for safety outside of the hospital setting 05/08 - SI improving but still present, working on safety plan. (2) Generalized anxiety disorder: 05/04 - Diagnosis of generalized anxiety disorder, with recent panic attacks. Cannot entirely rule out PTSD due to frequent intrusive thoughts of suicide presumed to be related to her father's suicide and trauma with the deaths of her brother and father. Pt does admit to nightmares and has been prescribed prazosin 1mg qHS which we will continue. - Continue fluoxetine 80mg qAM at this time, will trial augmentation with buspirone initially while collateral is being gathered from the patient's outpatient psychiatric prescriber. Other considerations include trial of a low- dose antipsychotic medication or possible cross-taper to an alternative antidepressant medication. - Pt questions a diagnosis of OCD, and admits to intrusive thoughts related to her father's suicide but does not report compulsions or other significant criteria for this diagnosis - continue to monitor - Encourage attendance of group programming, assist with development of healthy and effective coping strategies - Encourage family meeting to discuss safety and discharge planning - Coordinate outpatient appointments with therapist and psychiatric prescriber - Pt will be encouraged to complete a written safety plan prior to discharge 05/05 - Pt admits to ongoing intrusive thoughts of suicide, especially prevalent last evening. She admits to feeling safe here on the unit, but does not yet feel that she is able to manage these thoughts any differently and would not be safe doing so outside of the hospital setting at this time. - Pt reports she is benefitting from groups - continue to encourage attendance and participation in 1:1 therapy - Pt had a positive meeting with her mother and boyfriend today, feels they are supportive - Goal of treatment at this time is to focus on equipping patient with techniques to maintain appropriate mood and anxiety and minimize intrusive SI, especially during the time in which she will be away from her supports 05/06 - Pt reports anxiety and intrusive thoughts about suicide are most significant in the evenings. She agreed to adjusting dosing of buspirone to have bedtime dose given earlier in the evening. Pt also reminded of prn hydroxyzine for anxiety/insomnia - Thoughts of suicide continue to be ego dystonic - patient is working on coping skills and distraction techniques. - Has outpatient psychiatric providers, but is requesting support groups or grief counseling options in [place] 05/07 - Continue as above - patient admits anxiety was somewhat reduced last evening 05/08 - Increase prazosin to 2mg HS to target nightmares, which often trigger SI. - Continue fluoxetine 80mg and buspirone 10mg bid. (3) Depression: 05/04 - Medication adjustments as above - patient admits that her primary concern at this time is anxiety and intrusive thoughts - Monitor mood for worsening depression 05/05 - Reports improvement in mood - even suggesting feeling "jittery" and "fast- paced". We reviewed criteria for bipolar disorder, and patient was encouraged to monitor for symptoms of dieter. It is still felt that patient does not meet criteria for a bipolar diagnosis at this time, but patient verbalized understanding of need to monitor for these mood symptoms, especially given reported family history of bipolar disorder with her mother. 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 The patient has a history of depression, and was admitted on 05/03/20 20:12 on a 201 voluntary commitment for worsening anxiety and intrusive suicidal thoughts with images of numerous plans. Chief Complaint "Okay, I'm really nervous about leaving tomorrow". Review of Systems Sleep Information Total Hours of Sleep: 5.5 Sleep Comments: pt on q-15 minute checks Meal Information Percent Meal Consumed - Breakfast: 90 Percent Meal Consumed - Lunch: 90 Percent Meal Consumed - Dinner: 100 Nutrition Comment: per meal log Subjective Subjective Patient was seen & assessed and interval progress reviewed with nursing and social work. Staff report she is actively participating in groups and therapy, and rated her mood 09/01. On my assessment, she reports she feels "safe and secure here, but really anxious about leaving, because it (suicide) just jeancarlos freaks me out." She has been having dreams the past few nights, which is unusual since she started prazosin, as she usually does not dream at all. [place] upset about her vivid dreams which were scary. She woke up feeling "paranoid, really anxious, nervous," and had difficulty falling back asleep. She is fearful of her nightmares coming back,and of intrusive thoughts of suicide returning. States she does not want to by suicide, "don't want to follow in my dad's footsteps," and worries that it could become an irresistible impulse. States they are reduced here, but still present and "in my soul I know that they're still there, part of me is scared that deep down, I really do want to commit suicide." They most often occur at night, and it helps to have someone with her (family sometimes stays with her, and has been communicating openly with them about her thoughts and emotions). Discussed possibility of titrating prazosin, need to monitor BP as on low side. 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 Physical Exam Psychiatric Orientation: alert and cooperative Apperance: appropriately dressed, appropriately groomed and appeared stated age Eye Contact: + fair eye contact Motor Behavior: steady gait and station and no abnormal motor movements Rapid, hyperverbal, but not pressured Affect: + anxious affect and mood congruent with affect Mood: + anxious mood Thought Process: goal directed thought process and + circumstantial thought process (sometimes difficult to follow timeline) Thought Content: reality based without delusions focsed on nightmares/bad dream Suicidal Thoughts: + reports suicidal thoughts Homicidal Thoughts: denies homicidal thoughts Hallucinations: no auditory hallucinations and no visual hallucinations Cognition: recent memory grossly intact and language grossly intact Estimated Intelligence: consistent with education level Insight: + fair insight Judgement: + fair judgement Vital Signs (Past 24 Hours) Last Vital Signs Temp 36.7 C 05/08/20 06:36 Pulse 74 05/08/20 06:37 Resp 16 05/08/20 06:36 BP 110/73 05/08/20 06:37 Pulse Ox 100 05/03/20 19:58 Results & Data ([facility]) Current Inpatient Medications Current Inpatient Medications: Current Inpatient Medications Acetaminophen (Acetaminophen 325 Mg Tab) 650 mg PO Q4H PRN PRN Reason: Headache or Minor Fever Stop: 06/02/20 20:11 Al Hydrox/Mg Hydrox/Simethicone (Aluminum/Magnesium Susp 30 Ml Udc) 30 ml PO Q4H PRN PRN Reason: GI Upset Stop: 06/02/20 20:11 Bismuth Subsalicylate (Bismuth Subsalicylate Liqd 236 Ml) 15 ml PO PRN PRN PRN Reason: Loose Stool Stop: 06/02/20 20:11 Buspirone HCl (Buspirone 5 Mg Tab) 10 mg PO BID@0900,1800 [facility] Stop: 06/05/20 17:59 Last Admin: 05/08/20 09:00 Dose: 10 mg Documented by: Fluoxetine HCl (Fluoxetine Hcl 20 Mg Cap) 80 mg PO QAM GRACE Stop: 06/03/20 10:59 Last Admin: 05/08/20 09:01 Dose: 80 mg Documented by: Hydroxyzine HCl (Hydroxyzine Hcl 25 Mg Tab) 50 mg PO HSZ PRN PRN Reason: Insomnia Stop: 06/02/20 20:11 Hydroxyzine HCl (Hydroxyzine Hcl 25 Mg Tab) 25 mg PO Q4H PRN PRN Reason: Anxiety Stop: 06/02/20 20:11 Magnesium Hydroxide (Magnesium Hydroxide Susp 30 Ml Udc) 30 ml PO DAILY PRN PRN Reason: Constipation Stop: 06/02/20 20:11 Prazosin HCl (Prazosin Hcl 1 Mg Cap) 1 mg PO QPM GRACE Stop: 06/03/20 20:59 Last Admin: 05/07/20 21:16 Dose: 1 mg Documented by: Sodium Chloride (Sodium Chloride 0.65% Na Soln 45 Ml ([place])) 1 - 2 sprays NA PRN PRN PRN Reason: Nasal Dryness/Congestion Stop: 06/02/20 20:11 Mental Health & Subst Abuse Tx Psychiatrist Name of Psychiatrist: Shannan Aleman Psychiatrist's Date of Appointment with Psychiatrist: 05/09/20 Time of Appointment with Psychiatrist: 2:00 p.m. Psychiatric Appointment Comment: [id number] [facility] Therapist Name of Therapist: Shannan Sierra Therapist's Date of Therapist Appointment: 05/09/20 Time of Therapist Appointment: 4:00 p.m. Therapy Appointment Comment: [id number] [facility] Post Discharge Appointments Primary Care Physician Name Of Family Doctor: [facility] Time of Appointment with PCP: Follow up as needed Provider Appointment Comment: [place] [id number] Contact Information Discharge Discharge Address: [address] [place], [place] [address] [id number] (1) Depression Depression Type: major depressive disorder Major depression recurrence: recurrent Active/Remission status: currently active Major depression episode severity: moderate Qualified Code(s): F33.1 - Major depressive disorder, recurrent, moderate (2) Eating disorder Eating disorder type: unspecified eating disorder Qualified Code(s): F50.9 - Eating disorder, unspecified
[2020-05-08] MEDS ORDERED: PRAZOSIN HCL 1 MG CAP PO SCH (21:00)
[2020-05-09] MEDS: FLUoxetine HCL 20 MG CAP PO SCH (08:54)
[2020-05-09] MEDS: busPIRone 5 MG TAB PO SCH (08:55)
--- NOTE | 2020-05-09 10:33 | Discharge Summary ---
Date of Service May 09, 2020 History of Present Illness Kenyetta Chaudhari is a 20-year-old female admitted voluntarily for inpatient psychiatric treatment on 05/03/20 after presenting to the ED with worsening anxiety and intrusive thoughts of suicide, with images of numerous plans. Pt was unable to contract for safety in the ED due to feeling unsafe with these intrusive thoughts and feeling she could act on them in her current state. Pt does have established outpatient psychiatric providers at [facility]. Pt stated she had recently moved to an apartment in [place] where she is completing an architect internship for school, and reported it has been difficult to feel from her supports. Trauma history includes her brother dying in a car accident when the patient was 10y/o and her father committing suicide in 2019. Pt was cooperative with psychiatric interview. She is pleasant but does appear anxious. Pt admits that she has been struggling with the above concerns for several months now and has tried to manage these symptoms outside of the hospital, but no longer feels safe to do so. Pt admits she started receiving psychiatric treatment at age 10 after her brother's . She did well with a trial of sertraline, which she feels was eventually less effective by age 16 and was switched to fluoxetine. Pt's parents in 2017, which the patient identifies as traumatic and then her father committed suicide by gun shot in 2019. Pt states that she had been managing these concerns decently with assistance from medications, her therapist, and support from her mother, boyfriend, and his family. 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 Pt states "I felt bad, but I was kind of excited to be living on my own and learning who I am" - sharing that she had been living with her boyfriend and his family since her father's . Pt states "It was good for the first 2-3 weeks but then my anxiety got really bad." The patient states there have been multiple conversations or events that have triggered thoughts of her father's suicide and have been contributing to recent panic attacks. Pt states she has also been experiencing nightmares of "girls jumping from balconies or people shooting themselves" which have been distressing. Pt states she has started having intrusive thoughts of suicide - though denies current plan or intent to act on thoughts. Pt is focused on statistics suggesting she may be more likely to commit suicide because her father did, stating "I don't want to become a stereotype, I don't want to just be another statistic." Pt admits she was feeling unsafe with the frequency of these thoughts and no longer felt she could manage them outside of the hospital. She admits to presenting to the ED in [place] last month for similar concerns, but was able to be safety planned home at that time. Pt admits an additional stressor is the concern she may not complete her program on time (started architect internship 10 days late due to COVID infection, took a week off due to anxiety, several snow days, and now a psychiatric hospitalization). Pt does admit to history of depression, though states this is not the primary concern at this time. She does feel anxiety and "negative self-talk" contributes to low mood. Pt does report increased anxiety recently, but generalized racing thoughts related to "the what if's". She also reports putting a lot of pressure on herself to "live my life to the fullest, because I know my dad and my brother didn't get to." Pt does admit to panic attacks recently, which consist of crying spells, shortness of breath, chest tightness, tremors, and nausea - generally lasting up to an hour. Pt reports concern that she may have OCD, stating she may watch crime shows and then worry excessively that she may harm someone or that someone may harm her. She does deny any compulsions and thoughts that are identified as "obsessive" are almost exclusively related to the of her brother and father. Pt denies HI, SIB, A/V hallucinations, paranoia, dieter/hypomania, other symptoms more suggestive of a bipolar presentation, and other specific psychiatric symptoms. She does have a reported history of anorexia which she states has not been active in several years. Physical Exam Psychiatric Orientation: alert, oriented x 3 and cooperative Apperance: appropriately dressed, appropriately groomed and appeared stated age Eye Contact: good eye contact Motor Behavior: steady gait and station and no abnormal motor movements Speech: normal rate/rhythm/volume of speech (hyperverbal, somewhat rapid speech) Affect: euthymic affect Mood: + anxious mood ("nervous about leaving") Thought Process: goal directed thought process and clear/coherent thought process Thought Content: reality based without delusions; no hopelessness and no worthlessness Suicidal Thoughts: denies suicidal thoughts and denies suicidal intent intermittent intrusive thoughts of suicide, but they remain ego dystonic and less intense - denies plan or intent to act on thoughts Homicidal Thoughts: denies homicidal thoughts Hallucinations: no auditory hallucinations and no visual hallucinations Cognition: recent memory grossly intact, attention grossly intact and language grossly intact Estimated Intelligence: consistent with education level Insight: + fair insight Judgement: + fair judgement Vital Signs (Past 24 Hours) Last Vital Signs Temp 36.6 C 05/09/20 06:37 Pulse 118 H 05/09/20 06:38 Resp 16 05/09/20 06:37 BP 116/79 05/09/20 06:38 Pulse Ox 100 05/03/20 19:58 Principal Diagnosis - Generalized anxiety disorder (r/o PTSD vs. OCD traits) - Major depressive disorder - Hx of eating disorder Psychiatric Data 20-year-old female admitted voluntarily for inpatient psychiatric treatment on 05/03/20 after presenting to the ED with reports of worsening depression and anxiety as well as ego dystonic suicidal ideation with numerous plans (jump from balcony, shoot self, cut wrist, or crash car). Pt reported increased concern related to her father having completed suicide in 2018 and feeling she was u nable to keep herself safe in the setting of these intense thoughts. Pt is established with outpatient psychiatric providers, and case was discussed with her outpatient psychiatric PA-C. Pt was continued on home dose of fluoxetine 80mg with ability to utilize home dose of hydroxyzine 50mg for insomnia as needed. Patient's dose of prazosin was titrated to 2mg to target nightmares with suicidal themes. Pt agreed to start buspirone to target anxiety, and was discharged on a dose of 10mg BID. A one-week supply of medications was sent to the patient's pharmacy, as she will be meeting with her outpatient psychiatric prescriber this afternoon - but also states she forgot her prescription medications in [place] and is unsure when she will be returning. During the patient's admission, she attended group programming and participated actively. She was supportive of peers. Pt did agree to a family support meeting and chose to involve her boyfriend and mother. Pt will continue to see her providers through [facility] - having appointments for therapy and medication management the afternoon of discharge. Pt reported that she still has occasional intrusive thoughts of suicide - but they continue to be ego dystonic in nature, and are less frequent and less severe. Pt has completed a written safety plan, which was reviewed with staff. She was also encouraged to share her safety plan with her outpatient providers. Patient did not demonstrate symptoms of an active eating disorder while on the unit. Based on review of patient's case and their current presentation, risk of harm to self or others is no longer perceived to be acute. Management of symptoms on an outpatient basis seems the most appropriate and least restrictive setting. Pt seems appropriate for discharge with recommendation for consistent follow-up with outpatient psychiatric prescriber and therapist. Pt verbalized understanding of discharge plan reviewed and is agreeable with plan to be discharged home today. 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 Pt was also provided with additional grief counseling options, both in [place] and the [place] areas. Day of Discharge Assessment Patient's case was reviewed and discussed during treatment team. Staff report the patient continues to be interactive with peers. She rated her mood an 8/10 and "nervous" last evening. Pt was seen today to assess readiness for discharge. Pt states "Um, yesterday I was trying to process the idea of leaving today, but I do think I'm ready to go." Pt states that she feels she has been less stressed and feels she is better able to handle less frequent episodes of i ntrusive thoughts of suicide. Pt has been working on development of coping skills and grounding techniques that will assist her in managing these thoughts outside of the hospital as well. Pt denies nightmares last evening after prazosin was titrated. She admits to still feeling "nervous" about discharge, but is grateful to be able to touch base with her outpatient providers this afternoon. Pt states her family is planning to continue to stay with her in [place] periodically. She is excited to explore some grief counseling options that were provided to her. Pt denies acute SI, and continues to deny plan or intent to harm herself or end her life. Pt reports feeling ready for discharge today and feels as though she has met her treatment goals. ROS: Constitutional: denied Cardiovascular: denied Respiratory: denied Gastrointestinal: denied Neurological: denied Psychiatric: denies symptoms other than stated above Total of at least 10 systems reviewed, pertinent positives as above and in HPI. Transition of Care Transition Of Care Record: was reviewed with the patient Advance Directives Advance Directives Information Provided: Yes Advance Directives: No Mental Health Advance Directive: No Advance Directives on File: No Living Will: No Power of Dice Spotter: No Advance Directives Reason:: Declines as Mental Health Visit. Risk Factors Assessment Presenting risk factors reviewed on discharge. Precipitating stressors mitigated by: admission for inpatient psychiatric observation and treatment, appropriate adjustments to medications to target symptoms, attendance of therapeutic treatment groups, development of healthy and effective coping strategies, involvement of outpatient supports, completion of a safety plan, and education on diagnoses. Pt has demonstrated improvement in condition with regard to improvement in mood, reduced severity of intrusive ego dystonic thoughts of suicide, completion of written safety plan, involvement of outpatient supports, and ability to contract for safety outside of hospital setting. At this time, patient is requesting discharge and is no longer considered to be at acute risk of harm to herself or others. Pt will be discharged with recommendation for ongoing outpatient psychiatric treatment. Do You Have Access To A Gun?: No Tobacco Cessation at Discharge Tobacco Cessation Medication Prescribed at Discharge: Not Applicable/Non-Smoker Total Time Total Time Spent: Greater Than 30 Minutes Total Time Includes: Examination of the patient, Discharge Planning, Medication Reconciliation and Communication with other providers Discharge Data Lab Results 05/03/20 05/03/20 05/03/20 15:07 15:07 15:07 WBC RBC Hgb Hct MCV MCH MCHC RDW Std Deviation RDW Coeff of Keanu Plt Count MPV Immature Gran % (Auto) Neut % (Auto) Lymph % (Auto) [place] % (Auto) Eos % (Auto) Baso % (Auto) Neut # (Auto) Lymph # (Auto) [place] # (Auto) Eos # (Auto) Baso # (Auto) Immature Gran # (Auto) Sodium Potassium Chloride Carbon Dioxide Anion Gap BUN Creatinine Est Cr Clr Drug Dosing Est GFR ( Amer) Est GFR (Non-Af Amer) BUN/Creatinine Ratio Glucose Calcium Total Bilirubin AST ALT Alkaline Phosphatase Total Protein Albumin Globulin Albumin/Globulin Ratio TSH Urine Color Yellow Urine Appearance Clear Urine pH 8.0 H Ur Specific [place] 1.015 Urine Protein Negative Urine Glucose (UA) Negative Urine Ketones Negative Urine Blood Negative Urine Nitrite Negative Urine Bilirubin Negative Urine Urobilinogen Negative Ur Leukocyte Esterase Negative POC Ur Test NEG Salicylates Urine Opiates Screen Neg Ur Methadone, Qual Neg Acetaminophen Urine Barbiturates Neg Ur Phencyclidine (PCP) Neg U Amphetamin/Meth Scrn Neg MDMA (Ecstasy) Screen Neg U Benzodiazepines Scrn Neg Ur Cocaine Metabolite Neg U Marijuana (THC) Screen Neg Ethyl Alcohol mg/dL COVID-19 Eval Order SARS-CoV-2, RNA, NAAT 05/03/20 05/03/20 05/03/20 15:30 15:30 15:42 WBC 7.16 RBC 4.44 Hgb 13.7 Hct 39.7 MCV 89.4 MCH 30.9 MCHC 34.5 RDW Std Deviation 40.3 RDW Coeff of Keanu 12.3 Plt Count 283 MPV 8.7 Immature Gran % (Auto) 0.0 Neut % (Auto) 62.0 Lymph % (Auto) 26.3 [place] % (Auto) 10.3 Eos % (Auto) 1.3 Baso % (Auto) 0.1 Neut # (Auto) 4.44 Lymph # (Auto) 1.88 [place] # (Auto) 0.74 H Eos # (Auto) 0.09 Baso # (Auto) 0.01 Immature Gran # (Auto) 0.00 Sodium Potassium Chloride Carbon Dioxide Anion Gap BUN Creatinine Est Cr Clr Drug Dosing Est GFR ( Amer) Est GFR (Non-Af Amer) BUN/Creatinine Ratio Glucose Calcium Total Bilirubin AST ALT Alkaline Phosphatase Total Protein Albumin Globulin Albumin/Globulin Ratio TSH Urine Color Urine Appearance Urine pH Ur Specific Id[place]ha Urine Protein Urine Glucose (UA) Urine Ketones Urine Blood Urine Nitrite Urine Bilirubin Urine Urobilinogen Ur Leukocyte Esterase POC Ur Test Salicylates Urine Opiates Screen Ur Methadone, Qual Acetaminophen Urine Barbiturates Ur Phencyclidine (PCP) U Amphetamin/Meth Scrn MDMA (Ecstasy) Screen U Benzodiazepines Scrn Ur Cocaine Metabolite U Marijuana (THC) Screen Ethyl Alcohol mg/dL COVID-19 [facility] SARS-CoV-2, RNA, NAAT NEGATIVE 05/03/20 05/03/20 05/03/20 15:42 15:42 15:42 WBC RBC Hgb Hct MCV MCH MCHC RDW Std Deviation RDW Coeff of Keanu Plt Count MPV Immature Gran % (Auto) Neut % (Auto) Lymph % (Auto) [place] % (Auto) Eos % (Auto) Baso % (Auto) Neut # (Auto) Lymph # (Auto) [place] # (Auto) Eos # (Auto) Baso # (Auto) Immature Gran # (Auto) Sodium 138 Potassium 3.9 Chloride 107 Carbon Dioxide 27 Anion Gap 4.0 BUN 15 Creatinine 0.82 Est Cr Clr Drug Dosing 89.0 Est GFR ( Amer) 117.7 Est GFR (Non-Af Amer) 101.6 BUN/Creatinine Ratio 18.1 Glucose 89 Calcium 9.6 Total Bilirubin 0.2 AST 11 L ALT 20 Alkaline Phosphatase 38 L Total Protein 6.9 Albumin 3.7 Globulin 3.2 Albumin/Globulin Ratio 1.2 TSH 4.140 Urine Color Urine Appearance Urine pH Ur Specific Idanha Urine Protein Urine Glucose (UA) Urine Ketones Urine Blood Urine Nitrite Urine Bilirubin Urine Urobilinogen Ur Leukocyte Esterase POC Ur Test Salicylates < 1.7 L Urine Opiates Screen Ur Methadone, Qual Acetaminophen < 2 L Urine Barbiturates Ur Phencyclidine (PCP) U Amphetamin/Meth Scrn MDMA (Ecstasy) Screen U Benzodiazepines Scrn Ur Cocaine Metabolite U Marijuana (THC) Screen Ethyl Alcohol mg/dL < 3.0 COVID-19 Eval Order SARS-CoV-2, RNA, NAAT Hospital Course (1) Suicidal ideation: 05/04 - Admitted to a locked inpatient behavioral health unit, on q15 minute safety checks - Encourage medication adjustments as indicated - Encourage participation in group and recreational therapies - Gather collateral information from outpatient providers - Suggest family meeting to involve outpatient supports in safety planning - Arrange appropriate aftercare 05/05 - 05/07 - Pt admits to ongoing intrusive thoughts of SI, they remain ego dystonic, but are still concerning for the patient - She is unable at this time to contract for safety outside of the hospital setting 05/08 - SI improving but still present, working on safety plan. (2) Generalized anxiety disorder: 05/04 - Diagnosis of generalized anxiety disorder, with recent panic attacks. Cannot entirely rule out PTSD due to frequent intrusive thoughts of suicide presumed to be related to her father's suicide and trauma with the deaths of her brother and father. Pt does admit to nightmares and has been prescribed prazosin 1mg qHS which we will continue. - Continue fluoxetine 80mg qAM at this time, will trial augmentation with buspirone initially while collateral is being gathered from the patient's outpatient psychiatric prescriber. Other considerations include trial of a low- dose antipsychotic medication or possible cross-taper to an alternative antidepressant medication. - Pt questions a diagnosis of OCD, and admits to intrusive thoughts related to her father's suicide but does not report compulsions or other significant criteria for this diagnosis - continue to monitor - Encourage attendance of group programming, assist with development of healthy and effective coping strategies - Encourage family meeting to discuss safety and discharge planning - Coordinate outpatient appointments with therapist and psychiatric prescriber - Pt will be encouraged to complete a written safety plan prior to discharge 05/05 - Pt admits to ongoing intrusive thoughts of suicide, especially prevalent last evening. She admits to feeling safe here on the unit, but does not yet feel that she is able to manage these thoughts any differently and would not be safe doing so outside of the hospital setting at this time. - Pt reports she is benefitting from groups - continue to encourage attendance and participation in 1:1 therapy - Pt had a positive meeting with her mother and boyfriend today, feels they are supportive - Goal of treatment at this time is to focus on equipping patient with techniques to maintain appropriate mood and anxiety and minimize intrusive SI, especially during the time in which she will be away from her supports 05/06 - Pt reports anxiety and intrusive thoughts about suicide are most significant in the evenings. She agreed to adjusting dosing of buspirone to have bedtime dose given earlier in the evening. Pt also reminded of prn hydroxyzine for anxiety/insomnia - Thoughts of suicide continue to be ego dystonic - patient is working on coping skills and distraction techniques. - Has outpatient psychiatric providers, but is requesting support groups or grief counseling options in [place] 05/07 - Continue as above - patient admits anxiety was somewhat reduced last evening 05/08 - Increase prazosin to 2mg HS to target nightmares, which often trigger SI. - Continue fluoxetine 80mg and buspirone 10mg bid. (3) Depression: 05/04 - Medication adjustments as above - patient admits that her primary concern at this time is anxiety and intrusive thoughts - Monitor mood for worsening depression 05/05 - Reports improvement in mood - even suggesting feeling "jittery" and "fast- paced". We reviewed criteria for bipolar disorder, and patient was encouraged to monitor for symptoms of dieter. It is still felt that patient does not meet criteria for a bipolar diagnosis at this time, but patient verbalized understanding of need to monitor for these mood symptoms, especially given reported family history of bipolar disorder with her mother. 05/06 - 05/07 - Continue as above (4) Eating disorder: 05/04 - Pt reports history of anorexia with restrictive eating habits and excessive exercise, denies any active eating disorder behaviors - Encourage development of coping skills to deal with negative self-talk and anxiety - Monitor intake as per usual standards - this is unlikely to be a primary focus of treatment 05/06 - Stable since admission - continue to monitor Mental Health & Subst Abuse Tx Psychiatrist Name of Psychiatrist: Shannan Aleman Psychiatrist's Date of Appointment with Psychiatrist: 05/09/20 Time of Appointment with Psychiatrist: 2:00 p.m. Psychiatric Appointment Comment: [id number] [facility] Psychiatrist Release of Information: Obtained, Reviewed and Signed Therapist Name of Therapist: Shannan Sierra Therapist's Date of Therapist Appointment: 05/09/20 Time of Therapist Appointment: 4:00 p.m. Therapy Appointment Comment: [address] [facility] Therapist Release of Information: Obtained, Reviewed and Signed Post Discharge Appointments Primary Care Physician Name Of Family Doctor: Awa Sanon [facility] Time of Appointment with PCP: Follow up as needed Provider Appointment Comment: [place] Rod[place] [id number] Primary Care Release of Information: Obtained, Reviewed and Signed Smoking Cessation Counseling Tobacco Cessation Medication Prescribed at Discharge: Not Applicable/Non-Smoker Other #1: Name of Aftercare Appointment: Potential [facility] options: [facility] Phone Number of Aftercare Appointment: [phone] ext 115 #2: Name of Aftercare Appointment: Potential [facility] options: [facility] Phone Number of Aftercare Appointment: [phone] Contact Information Discharge Discharge [address] [address] [place] [address], [address] [place] [address] Discharge Plan Discharge Items Patient Disposition: Home - Self-Care Reason For Visit: MDD Discharge Diagnosis: - Generalized Anxiety Disorder - Major Depressive Disorder - Hx of Eating Disorder Condition on Discharge: Fair Activity: Resume your previous activity Non-emergency contact: Primary Care Provider, Psychiatrist and Therapist Call non-emergency contact if: you have any medication questions and your symptoms worsen Follow-up/Referrals: Talita Sánchez MD [Primary Care Provider] - Diet: Regular Addtl Attending Provider Instructions: SPECIAL CARE INSTRUCTIONS: 1. Follow through with your scheduled aftercare appointments. If unable to keep an appointment, please call to reschedule. 2. Take your medication only as prescribed. Medication should not be changed or stopped without the approval of your doctor. In the event of worsening symptoms or concerns about side effects, contact your doctor immediately. 3. Utilize new healthy coping skills, anger management skills, and stress management skills learned during your hospitalization. Journal feelings and process them with a support person. Identify stressors or situations that may result in relapse, deterioration or inappropriate behaviors and develop a plan to deal with those issues. 4. If your coping skills are ineffective and you are in crisis, contact your outpatient providers for direction. If unable to reach your providers, please call the [facility] CRISIS LINE AT , go to the [facility] walk-in center at [address] [facility], [facility], [place], or go to the closest Emergency Room. 5. Avoid alcohol and un-prescribed drugs. 6. You have been provided with the Mental Health Advance Directives Pamphlet for your review. AFTERCARE APPOINTMENTS: * Please call your insurance company prior to your scheduled appointment to confirm your aftercare providers are covered. Take your insurance information to your appointments. WHO TO CALL AND WHEN: Medical Emergencies: For questions or emergencies related to your hospital stay, please contact the [facility] Behavioral Health Unit at [phone]. A service team leader is on-call 15/09 for the Behavioral Health Unit for emergencies At any time you feel your situation is an emergency, you may also call 911 immediately. Pending Studies at Discharge: No Stand-Alone Forms: My [facility], Smoking Cessation Medications and DC Order Prescriptions: New buspirone 5 mg Tablet 10 mg PO BID@0900,1800 7 Days Qty: 14 RF: 0 hydroxyzine HCl 25 mg Tablet 50 mg PO HSZ PRN (Reason: insomnia/anxiety) 7 Days Qty: 7 RF: 0 prazosin 2 mg capsule 2 mg PO PM 7 Days Qty: 7 RF: 0 fluoxetine 40 mg capsule 80 mg PO QAM 7 Days Qty: 14 RF: 0 Continued loratadine [Claritin] 10 mg Tablet 10 mg PO DAILY PRN (Reason: Allergy Symptoms) RF: 0 Discontinued fluoxetine 40 mg Capsule 80 mg PO QAM RF: 0 hydroxyzine HCl 10 mg Tablet 10 mg PO BID PRN (Reason: anxiety/insomnia) RF: 0 prazosin 1 mg Capsule 1 mg PO HS RF: 0 Discharge Orders: Discharge Order (Routine); Ordered 05/09/20 Ordered By: Nica Chaidez Admission Data Admit Date/Time: 05/03/20 20:12 Attending Provider: Raymundo Yañez Admit Provider: Mary Ellen Rodriguez Primary Care Provider: Talita Sánchez Other Interventions: PSY Interdisciplinary Discharge Planning Last Done: 05/09/20 10:38 Coding Level of Care Code 58693 D/C day mgmt > 30 min Diagnoses Suicidal ideation R45.851 Generalized anxiety disorder F41.1 Depression F33.1 Active/Remission status: currently active Depression Type: major depressive disorder Major depression episode severity: moderate Major depression recurrence: recurrent Eating disorder F50.9 Eating disorder type: unspecified eating disorder
== END 2020-05-09 13:05 | disposition home or self-care (01) | DRG 885 ==
LOC: ED 14:48 → 3S 19:58 → SUATTDRO 20:12 → 3S 05-05 09:18